=== PATIENT | female | born 1950 | race Caucasian/White ===

== ENCOUNTER 2018-04-16 16:23 | Emergency (ER) | payer MEDICARE, MEDICAID ==
[~2018-04-16] VITALS: Ht 162.6 cm; Wt 74.4 kg
--- NOTE | 2018-04-16 16:34 | NUR ---
GUILLERMO ESTRADA AT BEDSIDE FOR MSE.
[2018-04-16 16:57] VITALS: BP 112/66
--- NOTE | 2018-04-16 16:57 | NUR ---
Patient discharged to home in stable conditon. Written and verbal after care instructions given. Patient verbalizes understanding of instructions. PT D/C W/ PRESCRIPTION. ALL BELONGINGS W/ PT. PT SELF-AMBULATED W/O DIFFICULTY.
[2018-04-16] MEDS ORDERED: ASPI81TA31 PO (17:01)
[2018-04-16] MEDS ORDERED: CELE200C PO (17:01)
[2018-04-16] MEDS ORDERED: ERGO2000 PO (17:01)
[2018-04-16] MEDS ORDERED: ERGO50CA PO (17:01)
[2018-04-16] MEDS ORDERED: OMEG1CAP55 PO (17:01)
[2018-04-16] MEDS ORDERED: ALBU18HF2 INH (17:01)
[2018-04-16] MEDS ORDERED: METO-357 PO (17:01)
[2018-04-16] MEDS ORDERED: HYDROCORTIZONE (17:01)
[2018-04-16] MEDS ORDERED: ARIP2TAB3 PO (17:01)
[2018-04-16] MEDS ORDERED: ATOR20TA PO (17:01)
[2018-04-16] MEDS ORDERED: VITAMIN D2 (17:01)
[2018-04-16] MEDS ORDERED: EZET10TA13 PO (17:01)
[2018-04-16] MEDS ORDERED: LOSA100T31 PO (17:01)
[2018-04-16] MEDS ORDERED: OXYB5TAB11 PO (17:01)
== END 2018-04-16 16:58 | disposition home or self-care (01) ==
LOC: ER 16:23
DX: H00.012 Hordeolum externum right lower eyelid (principal); R04.0 Epistaxis; R09.81 Nasal congestion; J45.909 Unspecified asthma, uncomplicated; E78.5 Hyperlipidemia, unspecified; Z79.82 Long term (current) use of aspirin; Z79.899 Other long term (current) drug therapy
CPT/HCPCS: A4663

== ENCOUNTER 2019-05-05 14:05 | Emergency (ER) | payer MEDICARE, OTHER ==
[~2019-05-05] VITALS: Ht 162.6 cm; Wt 74.4 kg
[2019-05-05] MEDS ORDERED: HYDROMORPHONE 1 MG/1 ML DISP.SYRIN IV ONE (14:30)
[2019-05-05] MEDS ORDERED: IV NORMAL SALINE 1000 ML BAG IV ONE (14:30)
[2019-05-05] MEDS ORDERED: ONDANSETRON 4 MG/2 ML VIAL IV ONE (14:30)
[2019-05-05 14:32] LABS: *BILIRUBIN,URIN NEGATIVE (NEGATIVE); *BLOOD, URINE NEGATIVE (NEGATIVE); *CLARITY,URINE CLEAR (CLEAR); *COLOR,URINE YELLOW (YELLOW); *KETONES,URINE NEGATIVE (NEGATIVE); *UROBILINOGEN,URINE 0.2 E.U./dl (NORMAL); LEUKOCYTE ESTERASE ,URINE 1+ (NEGATIVE); NITRITE, URINE NEGATIVE (NEGATIVE); UGLUCOSE NEGATIVE (NEGATIVE)
[2019-05-05 14:35] LABS: BASOPHILS % (AUTO) 0.6 % (0.0-2.0); EOSINOPHILS # (AUTO) 0.1 K/uL (0.0-0.7); EOSINOPHILS % (AUTO) 1.6 % (0.0-7.0); HEMATOCRIT 36.3 % (31.2-41.9); HEMOGLOBIN 12.3 g/dL (10.9-14.3); LYMPHOCYTES # (AUTO) 2.4 K/uL (20.0-40.0); LYMPHOCYTES % (AUTO) 34.8 % (20.5-51.5); MEAN CORPUSCULAR HEMOGLOBIN 29.7 uug (24.7-32.8); MEAN CORPUSCULAR HGB CONC 34 g/dL (32.3-35.6); MEAN CORPUSCULAR VOLUME 87.8 fL (75.5-95.3); MONOCYTES # (AUTO) 0.4 K/uL (2.0-10.0); MONOCYTES % (AUTO) 6.5 % (0.0-11.0); NEUTROPHILS # (AUTO) 3.8 K/uL (1.8-8.9); NEUTROPHILS % (AUTO) 56.5 % (38.5-71.5); PLATELET COUNT (AUTO) 229 K/uL (179-408); RED BLOOD CELL COUNT(AUTO) 4.13 MIL/uL (3.63-4.92); WHITE BLOOD COUNT (AUTO) 6.8 K/uL (3.8-11.8)
[2019-05-05] MEDS ORDERED: ONDANSETRON 4 MG/2 ML VIAL ONE (14:35)
[2019-05-05] MEDS ORDERED: HYDROMORPHONE 1 MG/1 ML DISP.SYRIN ONE (14:35)
[2019-05-05 14:42] LABS: BACTERIA,URINE NONE SEEN /HPF (NONE SEEN); RBC,URINE 0-3 /HPF (0-3); SQUAMOUS EPITHELIAL CELL,UR FEW /HPF (NONE SEEN)
[2019-05-05 14:47] LABS: BILIRUBIN,DIRECT 0.1 mg/dL (0.0-0.2); BILIRUBIN,TOTAL 0.3 mg/dL (0.2-1.0); CREATININE 0.8 mg/dL (0.6-1.3); POTASSIUM 3.9 mmol/L (3.5-5.1); TOTAL PROTEIN, SERUM 8.1 g/dL (6.4-8.2)
--- NOTE | 2019-05-05 15:36 | NUR ---
Patient discharged to home in stable conditon. Written and verbal after care instructions given. Patient verbalizes understanding of instructions.pt walks in steady gait. pt not drivng. pt accompanued by daughter.
[2019-05-05 15:38] VITALS: BP 121/79
== END 2019-05-05 15:41 | disposition home or self-care (01) ==
LOC: ER 14:05
DX: N39.0 Urinary tract infection, site not specified (principal); E78.5 Hyperlipidemia, unspecified; J45.909 Unspecified asthma, uncomplicated; Z79.82 Long term (current) use of aspirin; Z79.899 Other long term (current) drug therapy
CPT/HCPCS: 36415; 71045; 74176; 80048; 80076; 81000; 81001; 83690; 84484; 85025; 85730; 87086; 96361; 96374; 96375; 99285; J1170; J2405; 70030-TC; A4663; J7030